=== PATIENT | female | born 2000 | race Caucasian/White ===

== ENCOUNTER 2023-10-27 17:34 | Emergency (ER) | payer MEDICAID ==
[~2023-10-27] VITALS: Ht 162.6 cm; Wt 54.5 kg
[2023-10-27] MEDS: HYDROcodone-ACET 10/325MG TAB PO ONE (18:15)
[2023-10-27] MEDS: ONDANSETRON ODT 4 MG TAB PO ONE (18:15)
[2023-10-27 18:41] VITALS: BP 104/70; PULSE 112; RESP 18; TEMP 98.2; O2SAT 97
[2023-10-27] MEDS: KETOROLAC TROMETH 30 MG/ML 1ML VIAL IM ONE (20:15)
== END 2023-10-27 21:02 | disposition left against medical advice (07) ==
LOC: EDBD 17:34 → ER 17:34 → EDUNIT# 17:34 → ER 21:02
DX: M25.531 Pain in right wrist (principal); V43.62XA Car passenger injured in collision with other type car in traffic accident, initial encounter; Y93.89 Activity, other specified; Y92.89 Other specified places as the place of occurrence of the external cause; Y99.8 Other external cause status
CPT/HCPCS: 73090; 73110; 99284; J1885; Q0162